=== PATIENT | female | born 1955 ===

== ENCOUNTER 2022-02-10 16:57 | Inpatient (IN) ==
[2022-02-10] MEDS ORDERED: Ipratropium/Albuterol Neb 3 ML IH ONE (18:45)
[2022-02-10 18:54] LABS: Basophils % 0.2 %; Hematocrit 24.3 % (35.3-44.9); Hemoglobin 8.1 g/dL (11.5-15.4); Immature Granulocytes % 1.2 % (0-4); Lymphocytes % 15.7 %; Mean Corpuscular HGB Conc 33.3 g/dL (31.6-35.5); Mean Corpuscular Hemoglobin 27.7 pg (28.0-33.3); Mean Corpuscular Volume 83.2 fL (83.0-100.0); Mean Platelet Volume 9.9 fL (9.4-12.4); Monocytes # 1.2 K/mcL (0.0-1.3); Monocytes % 17.7 %; Neutrophils # 4.2 K/mcL (1.6-8.9); Platelet Count 209 K/mcL (140-400); Red Blood Count 2.92 M/mcL (3.82-4.97); Red Cell Distribution Width 15.2 % (11.5-14.5); Segmented Neutrophils % 65.2 %; White Blood Count 6.5 K/mcL (4.3-11.1)
[2022-02-10 19:15] LABS: Alanine Aminotransferase 18 Units/L (7-52); Albumin 2.7 g/dL (3.5-5.7); Albumin/Globulin Ratio 0.7 (1.1-2.2); Alkaline Phosphatase 106 Units/L (34-104); Aspartate Amino Transferase 19 Units/L (13-39); BUN/Creatinine Ratio 20 (6-26); Bilirubin,Direct 0.3 mg/dL (0.0-0.2); Bilirubin,Indirect 0.5 mg/dL (0.0-1.0); Bilirubin,Total 0.8 mg/dL (0.3-1.0); Blood Urea Nitrogen 39 mg/dL (8-23); Calcium 8.4 mg/dL (8.6-10.3); Carbon Dioxide 21 mEq/L (23-29); Chloride 94 mEq/L (98-107); Globulin 3.9 g/dL (2.4-3.5); Glucose 291 mg/dL (70-105); Osmolality,Calculated 276 (280-300); Potassium 4.9 mEq/L (3.5-5.1); Sodium 123 mEq/L (136-145); Total Protein 6.6 g/dL (6.4-8.9); Troponin I < 0.03 ng/mL (< 0.04); eGFR For African Americans 31 (> 60); eGFR For Non-African Americans 25 (> 60)
[2022-02-10 19:28] LABS: VBG HCO3 19 mEq/L (21-27); VBG PCO2 34 mmHg (41-51); VBG PH 7.36 pH Units (7.32-7.42); VBG PO2 71 mmHg (25-50)
[2022-02-10] MEDS ORDERED: Furosemide 20 MG/2 ML VIAL IVP ONE (20:45)
[2022-02-10] MEDS ORDERED: *HR* Dextrose 50 % in Water (Syg) 50 ML SYRINGE IVP PRN (21:17)
[2022-02-10] MEDS ORDERED: D5% in Water 1,000 ML IVC PRN (21:17)
[2022-02-10] MEDS ORDERED: Dextrose Gel 15 GM/37.5 ML TUBE PO PRN ×2 (21:17)
[2022-02-10] MEDS ORDERED: Naloxone 0.4 MG/ML INJ IVP PRN (22:30)
[2022-02-10] MEDS ORDERED: Acetaminophen 325 MG TABLET PO PRN (22:30)
[2022-02-10] MEDS ORDERED: Ondansetron 4 MG/2 ML VIAL IVP PRN (22:30)
[2022-02-10 23:18] LABS: Bilirubin,Urine Negative (Negative); Blood,Urine Moderate (Negative); Clarity,Urine Ex.Turbid (Clear); Color,Urine Yellow (Yellow); Glucose,Urine (UA) 70 mg/dL (Normal); Ketones,Urine Trace mg/dL (Negative); Leukocyte Esterase,Urine Large (Negative); Nitrite,Urine Negative (Negative); Protein,Urine >=300 mg/dL (Neg-Trace); Specific Gravity,Urine 1.015 (1.010-1.025); Urobilinogen,Urine Normal (Normal)
[2022-02-10 23:29] LABS: Bacteria,Urine Present per hpf (None-Few); WBC,Urine Present per hpf (0-3)
[2022-02-11] MEDS ORDERED: Perflutren Lipid Microsphere 1.3 ML in 0.9 % Sodium Chloride 8.7 ML IVP PRN (00:17)
[2022-02-11] MEDS: Insulin LISPRO 300 UNITS/3 ML VIAL SUBQ SCH ×4 (00:34→17:12)
[2022-02-11] MEDS: Azithromycin 500 MG in 0.9 % Sodium Chloride 250 ML IVPB SCH ×2 (00:34→23:58)
[2022-02-11] MEDS: cefTRIAXone 1,000 MG in 0.9 % Sodium Chloride 10 ML IVP SCH ×2 (00:34→23:57)
[2022-02-11 01:28] LABS: Hematocrit 21.5 % (35.3-44.9); Mean Corpuscular HGB Conc 32.6 g/dL (31.6-35.5); Mean Corpuscular Hemoglobin 27.5 pg (28.0-33.3); Mean Corpuscular Volume 84.3 fL (83.0-100.0); Mean Platelet Volume 9.4 fL (9.4-12.4); Platelet Count 197 K/mcL (140-400); Red Blood Count 2.55 M/mcL (3.82-4.97); Red Cell Distribution Width 15.2 % (11.5-14.5); White Blood Count 6.3 K/mcL (4.3-11.1)
[2022-02-11 01:42] LABS: Calcium 8.4 mg/dL (8.6-10.3); Potassium 4.7 mEq/L (3.5-5.1)
[2022-02-11 01:44] LABS: Calcium 8.2 mg/dL (8.6-10.3); Potassium 4.7 mEq/L (3.5-5.1)
[2022-02-11 01:57] LABS: Thyroid Stimulating Hormone 1.689 mcIU/mL (0.340-5.600)
[2022-02-11 03:25] LABS: Adenovirus Not Detected (Not Detect); Bordetella Pertussis Not Detected (Not Detect); Chlamydophila pneumoniae Not Detected (Not Detect); Coronavirus 229E Not Detected (Not Detect); Coronavirus HKU1 Not Detected (Not Detect); Coronavirus NL63 Not Detected (Not Detect); Coronavirus OC43 Not Detected (Not Detect); Human Metapneumovirus Not Detected (Not Detect); Human Rhinovirus/Enterovirus Not Detected (Not Detect); Influenza A Subtype 2009 H1 Not Detected (Not Detect); Influenza B Not Detected (Not Detect); Mycoplasma pneumoniae Not Detected (Not Detect); Parainfluenza Virus 1 Not Detected (Not Detect); Parainfluenza Virus 2 Not Detected (Not Detect); Parainfluenza Virus 3 Not Detected (Not Detect); Parainfluenza Virus 4 Not Detected (Not Detect); Respiratory Syncytial Virus Not Detected (Not Detect); SARS-CoV-2 Not Detected (Not Detect)
[2022-02-11] MEDS: Cyanocobalamin (B-12) 1,000 MCG TABLET PO SCH (09:36)
[2022-02-11] MEDS: Furosemide 20 MG/2 ML VIAL IVP SCH ×2 (09:36→20:53)
[2022-02-11] MEDS: Cholecalciferol (D-3) 1,000 UNIT (25MCG) TABLET PO SCH (09:36)
[2022-02-11] MEDS: Insulin DETEMIR 100 UNIT/ML X5UNITS SUBQ SCH ×2 (09:37→20:53)
[2022-02-11] MEDS: Dorzolamide OPTH 10 ML BOTTLE BOTH EYES SCH ×2 (09:37→20:53)
[2022-02-11 10:25] LABS: Creatinine,Urine 106 mg/dL
[2022-02-11 10:40] LABS: Protein/Creatinine Ratio,Urine 2.68 mg/mg (0.00-0.20); Sodium, Urine 48.7 mEq/L
[2022-02-11 10:57] LABS: Folate 19.9 ng/mL (3.0-16.0)
[2022-02-11 11:04] LABS: Vitamin B12 > 1500 pg/mL (250-1100)
[2022-02-11] MEDS: Albumin 25% 25gram/100mL 25 GM/100 ML IV.SOLN IVPB SCH (15:52)
[2022-02-12] MEDS: Albumin 25% 25gram/100mL 25 GM/100 ML IV.SOLN IVPB SCH ×4 (01:08→16:51)
[2022-02-12 03:13] LABS: Red Cell Distribution Width 15.5 % (11.5-14.5)
[2022-02-12 03:15] LABS: Mean Corpuscular HGB Conc 32.2 g/dL (31.6-35.5); Mean Corpuscular Volume 83.7 fL (83.0-100.0); Mean Platelet Volume 9.7 fL (9.4-12.4); Platelet Count 209 K/mcL (140-400); Red Blood Count 2.15 M/mcL (3.82-4.97); White Blood Count 5.9 K/mcL (4.3-11.1)
[2022-02-12 03:36] LABS: Calcium 8.7 mg/dL (8.6-10.3); Hemoglobin 5.8 g/dL (11.5-15.4); Magnesium 1.6 mg/dL (1.6-2.6); Phosphorous 3.2 mg/dL (2.7-4.5); Potassium 4.2 mEq/L (3.5-5.1); Uric Acid 8.5 mg/dL (2.3-7.6)
[2022-02-12 05:18] LABS: Hypochromasia Present (Not Present); Lymphocytes # 2.2 K/mcL (0.6-4.6); Monocytes # 0.7 K/mcL (0.0-1.3)
[2022-02-12 05:20] LABS: Anisocytosis 1+ (Not Present); Platelet Estimate Normal (Normal)
[2022-02-12] MEDS: FLUoxetine 20 MG CAPSULE PO SCH (08:09)
[2022-02-12] MEDS: Cyanocobalamin (B-12) 1,000 MCG TABLET PO SCH (08:09)
[2022-02-12] MEDS: Cholecalciferol (D-3) 1,000 UNIT (25MCG) TABLET PO SCH (08:09)
[2022-02-12] MEDS: Furosemide 20 MG/2 ML VIAL IVP SCH ×2 (08:09→21:18)
[2022-02-12] MEDS: Insulin DETEMIR 100 UNIT/ML X5UNITS SUBQ SCH ×2 (08:14→21:18)
[2022-02-12] MEDS: Insulin LISPRO 300 UNITS/3 ML VIAL SUBQ SCH ×3 (08:15→16:52)
[2022-02-12] MEDS: Dorzolamide OPTH 10 ML BOTTLE BOTH EYES SCH ×2 (08:17→21:17)
[2022-02-12 16:57] LABS: Albumin 3.1 g/dL (3.5-5.7); Albumin/Globulin Ratio 0.9 (1.1-2.2); Bilirubin,Direct 0.3 mg/dL (0.0-0.2); Bilirubin,Indirect 0.6 mg/dL (0.0-1.0); Bilirubin,Total 0.9 mg/dL (0.3-1.0); Globulin 3.5 g/dL (2.4-3.5); Rheumatoid Factor 67 IU/mL (Less than 14); Total Protein 6.6 g/dL (6.4-8.9)
[2022-02-12 16:58] LABS: Complement C3 121 mg/dL (87-200)
[2022-02-12 17:41] LABS: Hepatitis B Surface Antigen Nonreactive (Nonreactive)
[2022-02-12 18:09] LABS: Hepatitis B Core IgM Nonreactive (Nonreactive)
[2022-02-12 18:10] LABS: Hepatitis C Virus Antibody Nonreactive (Nonreactive)
[2022-02-12 18:11] LABS: Hepatitis A Antibody IgM Nonreactive (Nonreactive)
[2022-02-12] MEDS: cefTRIAXone 1,000 MG in 0.9 % Sodium Chloride 10 ML IVP SCH (23:40)
[2022-02-12] MEDS: Azithromycin 500 MG in 0.9 % Sodium Chloride 250 ML IVPB SCH (23:43)
[2022-02-13] MEDS: Albumin 25% 25gram/100mL 25 GM/100 ML IV.SOLN IVPB SCH ×4 (02:03→23:01)
[2022-02-13 03:23] LABS: Basophils % 0.2 %; Eosinophils % 0.2 %; Hematocrit 26.4 % (35.3-44.9); Immature Granulocytes % 1.2 % (0-4); Mean Corpuscular Hemoglobin 27.9 pg (28.0-33.3); Mean Corpuscular Volume 84.6 fL (83.0-100.0); Mean Platelet Volume 9.5 fL (9.4-12.4); Monocytes # 0.9 K/mcL (0.0-1.3); Monocytes % 14.9 %; Neutrophils # 3.3 K/mcL (1.6-8.9); Platelet Count 222 K/mcL (140-400); Red Blood Count 3.12 M/mcL (3.82-4.97); Red Cell Distribution Width 14.6 % (11.5-14.5); Segmented Neutrophils % 54.5 %
[2022-02-13 03:43] LABS: Hemoglobin 8.7 g/dL (11.5-15.4); Lymphocytes # 1.7 K/mcL (0.6-4.6)
[2022-02-13 03:48] LABS: Potassium 4.2 mEq/L (3.5-5.1)
[2022-02-13] MEDS: Insulin LISPRO 300 UNITS/3 ML VIAL SUBQ SCH ×3 (08:21→17:17)
[2022-02-13] MEDS: Insulin DETEMIR 100 UNIT/ML X5UNITS SUBQ SCH ×2 (08:59→20:55)
[2022-02-13] MEDS: Dorzolamide OPTH 10 ML BOTTLE BOTH EYES SCH ×2 (09:00→20:54)
[2022-02-13] MEDS: FLUoxetine 20 MG CAPSULE PO SCH (09:22)
[2022-02-13] MEDS: Cyanocobalamin (B-12) 1,000 MCG TABLET PO SCH (09:22)
[2022-02-13] MEDS: Cholecalciferol (D-3) 1,000 UNIT (25MCG) TABLET PO SCH (09:22)
[2022-02-13] MEDS: Furosemide 20 MG/2 ML VIAL IVP SCH ×2 (09:54→20:54)
[2022-02-13 16:25] LABS: INR 1.1; Prothrombin Time 12.7 Seconds (9.4-12.1)
[2022-02-13 17:43] LABS: ABG Base Excess -3 mEq/L (-2 to 3); ABG HCO3 21 mEq/L (21-27); ABG Oxygen Saturation 84 % (95-98); ABG PCO2 34 mmHg (35-45); ABG PO2 48 mmHg (85-104); ABG TCO2 22 mEq/L (20-26)
[2022-02-13] MEDS ORDERED: Furosemide 40 MG/4 ML VIAL IVP ONE (18:30)
[2022-02-13] MEDS: Cefepime HCl 2,000 MG in 0.9 % Sodium Chloride 10 ML IVPB SCH (20:53)
[2022-02-13] MEDS ORDERED: Vancomycin 1,500 MG/265 ML IV.SOLN IVPB ONE (21:00)
[2022-02-14] MEDS: Insulin LISPRO 300 UNITS/3 ML VIAL SUBQ SCH ×3 (09:48→18:42)
[2022-02-14] MEDS: Cholecalciferol (D-3) 1,000 UNIT (25MCG) TABLET PO SCH (09:57)
[2022-02-14] MEDS: Cyanocobalamin (B-12) 1,000 MCG TABLET PO SCH (09:57)
[2022-02-14] MEDS: Furosemide 20 MG/2 ML VIAL IVP SCH ×2 (09:58→20:50)
[2022-02-14] MEDS: FLUoxetine 20 MG CAPSULE PO SCH (09:58)
[2022-02-14] MEDS: Albumin 25% 25gram/100mL 25 GM/100 ML IV.SOLN IVPB SCH ×2 (09:58→18:42)
[2022-02-14] MEDS: Cefepime HCl 2,000 MG in 0.9 % Sodium Chloride 10 ML IVPB SCH (09:59)
[2022-02-14] MEDS: Dorzolamide OPTH 10 ML BOTTLE BOTH EYES SCH ×2 (10:00→20:51)
[2022-02-14 10:31] LABS: Basophils % 0.1 %; Hematocrit 25.4 % (35.3-44.9); Hemoglobin 8.5 g/dL (11.5-15.4); Immature Granulocytes % 0.9 % (0-4); Lymphocytes # 1.5 K/mcL (0.6-4.6); Lymphocytes % 20.8 %; Mean Corpuscular HGB Conc 33.5 g/dL (31.6-35.5); Mean Corpuscular Hemoglobin 28.7 pg (28.0-33.3); Mean Corpuscular Volume 85.8 fL (83.0-100.0); Mean Platelet Volume 9.3 fL (9.4-12.4); Monocytes # 0.7 K/mcL (0.0-1.3); Monocytes % 9.3 %; Neutrophils # 4.8 K/mcL (1.6-8.9); Platelet Count 209 K/mcL (140-400); Red Blood Count 2.96 M/mcL (3.82-4.97); Segmented Neutrophils % 68.9 %
[2022-02-14 10:52] LABS: Calcium 9.5 mg/dL (8.6-10.3); Potassium 4.1 mEq/L (3.5-5.1)
[2022-02-14] MEDS: Insulin DETEMIR 100 UNIT/ML X5UNITS SUBQ SCH ×2 (12:20→20:50)
[2022-02-14 20:52] LABS: Calcium 9.5 mg/dL (8.6-10.3); Potassium 4.2 mEq/L (3.5-5.1)
[2022-02-14] MEDS ORDERED: Vancomycin 1,250 MG/262.5 ML IV.SOLN IVPB ONE (22:00)
[2022-02-15 04:04] LABS: Basophils % 0.1 %; Eosinophils % 0.3 %; Hematocrit 23.2 % (35.3-44.9); Hemoglobin 7.6 g/dL (11.5-15.4); Lymphocytes # 1.6 K/mcL (0.6-4.6); Lymphocytes % 21.4 %; Mean Corpuscular HGB Conc 32.8 g/dL (31.6-35.5); Mean Corpuscular Hemoglobin 28.6 pg (28.0-33.3); Mean Corpuscular Volume 87.2 fL (83.0-100.0); Monocytes # 0.8 K/mcL (0.0-1.3); Monocytes % 11.4 %; Neutrophils # 4.8 K/mcL (1.6-8.9); Platelet Count 208 K/mcL (140-400); Red Blood Count 2.66 M/mcL (3.82-4.97); Red Cell Distribution Width 15.3 % (11.5-14.5); Segmented Neutrophils % 65.8 %; White Blood Count 7.4 K/mcL (4.3-11.1)
[2022-02-15 04:20] LABS: Calcium 9.4 mg/dL (8.6-10.3); Magnesium 1.6 mg/dL (1.6-2.6); Potassium 4.3 mEq/L (3.5-5.1)
[2022-02-15] MEDS: Insulin LISPRO 300 UNITS/3 ML VIAL SUBQ SCH ×3 (09:12→17:24)
[2022-02-15] MEDS: Furosemide 20 MG/2 ML VIAL IVP SCH ×2 (09:14→20:28)
[2022-02-15] MEDS: Insulin DETEMIR 100 UNIT/ML X5UNITS SUBQ SCH ×2 (09:15→20:32)
[2022-02-15] MEDS: FLUoxetine 20 MG CAPSULE PO SCH (09:16)
[2022-02-15] MEDS: Dorzolamide OPTH 10 ML BOTTLE BOTH EYES SCH (09:16)
[2022-02-15] MEDS: Cefepime HCl 2,000 MG in 0.9 % Sodium Chloride 10 ML IVPB SCH (09:17)
[2022-02-15] MEDS: Cholecalciferol (D-3) 1,000 UNIT (25MCG) TABLET PO SCH (09:18)
[2022-02-15] MEDS: Cyanocobalamin (B-12) 1,000 MCG TABLET PO SCH (09:18)
[2022-02-15] MEDS ORDERED: Furosemide 40 MG/4 ML VIAL IVP ONE (10:01)
[2022-02-15 10:19] LABS: ANA IgG by ELISA NONE DETECTED (None Detected)
[2022-02-15 10:27] LABS: Kappa Qnt Free Light Chains 128.59 mg/L (3.30-19.40); Lambda Qnt Free Light Chains 137.75 mg/L (5.71-26.30)
[2022-02-15] MEDS: Ipratropium/Albuterol Neb 3 ML IH PRN (10:31)
[2022-02-15] MEDS ORDERED: *HR* LORazepam 2 MG/ML VIAL IVP ONE (12:10)
[2022-02-15] MEDS ORDERED: *HR* LORazepam 2 MG/ML VIAL ONE (12:13)
[2022-02-15] MEDS ORDERED: Artificial Tears SOLN 15 ML BOTTLE BOTH EYES PRN (13:27)
[2022-02-15] MEDS: FentaNYL (PF) 1,000 MCG/100 ML IV.SOLN IVC SCH (13:45)
[2022-02-15] MEDS ORDERED: 0.9 % Sodium Chloride 500 ML ONE (13:57)
[2022-02-15] MEDS: Norepinephrine 4 MG/254 ML IV.SOLN IVC SCH (14:50)
[2022-02-15] MEDS: *HR* Heparin 5,000 UNIT/ML VIAL SQ SCH ×2 (15:46→20:28)
[2022-02-15] MEDS: Artificial Tears SOLN 15 ML BOTTLE BOTH EYES SCH ×3 (15:47→23:16)
[2022-02-15 16:04] LABS: ABG Base Excess -3 mEq/L (-2 to 3); ABG HCO3 23 mEq/L (21-27); ABG Oxygen Saturation 100 % (95-98); ABG PCO2 39 mmHg (35-45); ABG PH 7.37 pH Units (7.32-7.45); ABG PO2 241 mmHg (85-104); ABG TCO2 24 mEq/L (20-26); Blood Gas Modality ASSIST CONTROL; Blood Gas VT 400 cc
[2022-02-15] MEDS: Pantoprazole 40 MG VIAL IVP SCH (16:59)
[2022-02-15] MEDS: Albumin 25% 25gram/100mL 25 GM/100 ML IV.SOLN IVPB SCH ×2 (17:02→23:16)
[2022-02-15] MEDS: MetroNIDAZOLE 500 MG/100 ML 500 MG/100 ML BAG IVPB SCH ×2 (17:02→23:16)
[2022-02-15] MEDS ORDERED: Lidocaine -MPF 2% 5 ML VIAL SQ ONE (17:38)
[2022-02-15] MEDS ORDERED: *HR* Midazolam HCl 5 MG/5 ML VIAL IVP ONE (17:38)
[2022-02-15] MEDS ORDERED: *HR* Propofol 200 MG/20 ML VIAL IVP ONE (17:38)
[2022-02-15 18:55] LABS: Appearance of Body Fluid Clear (Clear); Volume of Body Fluid 23 mL
[2022-02-15] MEDS: Chlorhexidine Rinse 15 ML MOUTHWASH MM SCH (20:28)
[2022-02-15] MEDS: Budesonide/Formoterol 160/4.5 1 PUFF INH IH SCH (22:38)
[2022-02-16] MEDS: Dorzolamide OPTH 10 ML BOTTLE BOTH EYES SCH ×3 (00:10→20:21)
[2022-02-16 02:26] LABS: VBG Ionized Calcium 1.29 mmol/L (1.15-1.35)
[2022-02-16 02:29] LABS: Eosinophils % 0.5 %; Hematocrit 19.2 % (35.3-44.9); Hemoglobin 6.3 g/dL (11.5-15.4); Lymphocytes # 1.3 K/mcL (0.6-4.6); Lymphocytes % 31.6 %; Mean Corpuscular HGB Conc 32.8 g/dL (31.6-35.5); Mean Corpuscular Hemoglobin 28.5 pg (28.0-33.3); Mean Corpuscular Volume 86.9 fL (83.0-100.0); Mean Platelet Volume 9.1 fL (9.4-12.4); Monocytes # 0.6 K/mcL (0.0-1.3); Monocytes % 13.6 %; Neutrophils # 2.2 K/mcL (1.6-8.9); Platelet Count 151 K/mcL (140-400); Red Blood Count 2.21 M/mcL (3.82-4.97); Red Cell Distribution Width 15.6 % (11.5-14.5); Segmented Neutrophils % 53.3 %; White Blood Count 4.1 K/mcL (4.3-11.1)
[2022-02-16 02:38] LABS: Albumin 3.5 g/dL (3.5-5.7); Albumin/Globulin Ratio 1.2 (1.1-2.2); Bilirubin,Direct 0.5 mg/dL (0.0-0.2); Bilirubin,Indirect 0.4 mg/dL (0.0-1.0); Bilirubin,Total 0.9 mg/dL (0.3-1.0); Calcium 9.6 mg/dL (8.6-10.3); Globulin 2.9 g/dL (2.4-3.5); Magnesium 1.6 mg/dL (1.6-2.6); Phosphorous 2.7 mg/dL (2.7-4.5); Potassium 3.5 mEq/L (3.5-5.1); Total Protein 6.4 g/dL (6.4-8.9)
[2022-02-16] MEDS: FentaNYL (PF) 1,000 MCG/100 ML IV.SOLN IVC SCH ×3 (03:00→23:39)
[2022-02-16 03:49] LABS: ABG Base Excess -4 mEq/L (-2 to 3); ABG HCO3 21 mEq/L (21-27); ABG Oxygen Saturation 95 % (95-98); ABG PCO2 32 mmHg (35-45); ABG PH 7.41 pH Units (7.32-7.45); ABG PO2 72 mmHg (85-104); ABG TCO2 22 mEq/L (20-26); Blood Gas Modality AF; Blood Gas VT 400 cc
[2022-02-16] MEDS: Artificial Tears SOLN 15 ML BOTTLE BOTH EYES SCH ×6 (04:14→23:55)
[2022-02-16] MEDS: Norepinephrine 4 MG/254 ML IV.SOLN IVC SCH ×2 (04:17→15:24)
[2022-02-16] MEDS ORDERED: 0.9 % Sodium Chloride 250 ML IVC SCH (04:45)
[2022-02-16] MEDS: *HR* Heparin 5,000 UNIT/ML VIAL SQ SCH (05:23)
[2022-02-16] MEDS: Albumin 25% 25gram/100mL 25 GM/100 ML IV.SOLN IVPB SCH ×3 (07:50→23:54)
[2022-02-16] MEDS: Cyanocobalamin (B-12) 1,000 MCG TABLET PO SCH (07:51)
[2022-02-16] MEDS: Furosemide 20 MG/2 ML VIAL IVP SCH (07:51)
[2022-02-16] MEDS: Chlorhexidine Rinse 15 ML MOUTHWASH MM SCH ×2 (07:51→20:21)
[2022-02-16] MEDS: Pantoprazole 40 MG VIAL IVP SCH (07:51)
[2022-02-16] MEDS: Cholecalciferol (D-3) 1,000 UNIT (25MCG) TABLET PO SCH (07:51)
[2022-02-16] MEDS: MetroNIDAZOLE 500 MG/100 ML 500 MG/100 ML BAG IVPB SCH ×3 (07:51→23:54)
[2022-02-16] MEDS: FLUoxetine 20 MG CAPSULE PO SCH (07:51)
[2022-02-16] MEDS: Budesonide/Formoterol 160/4.5 1 PUFF INH IH SCH ×2 (07:56→19:45)
[2022-02-16] MEDS: Insulin LISPRO 300 UNITS/3 ML VIAL SUBQ SCH ×5 (08:17→23:56)
[2022-02-16] MEDS: Insulin DETEMIR 100 UNIT/ML X5UNITS SUBQ SCH ×2 (09:02→20:31)
[2022-02-16] MEDS: Cefepime HCl 2,000 MG in 0.9 % Sodium Chloride 10 ML IVPB SCH (10:13)
[2022-02-16] MEDS: methylPREDNISolone 250 MG in 0.9 % Sodium Chloride 50 ML IVPB SCH ×3 (11:11→23:53)
[2022-02-16 15:22] LABS: Immunoglobulin A 392 mg/dL (68-408); Immunoglobulin G 1190 mg/dL (768-1632); Immunoglobulin M 319 mg/dL (35-263)
[2022-02-16 15:51] LABS: Hematocrit 24.7 % (35.3-44.9); Hemoglobin 8.3 g/dL (11.5-15.4)
[2022-02-16 16:10] LABS: Magnesium 2.1 mg/dL (1.6-2.6)
[2022-02-16 17:18] LABS: Alpha 2 Globulin (PEP) 0.96 g/dL (0.48-1.05)
[2022-02-17 03:49] LABS: Hematocrit 24.5 % (35.3-44.9); Immature Granulocytes % 1.3 % (0-4); Lymphocytes # 0.3 K/mcL (0.6-4.6); Lymphocytes % 14.7 %; Mean Corpuscular HGB Conc 32.7 g/dL (31.6-35.5); Mean Corpuscular Hemoglobin 28.6 pg (28.0-33.3); Mean Corpuscular Volume 87.5 fL (83.0-100.0); Mean Platelet Volume 9.9 fL (9.4-12.4); Monocytes # 0.1 K/mcL (0.0-1.3); Monocytes % 3.6 %; Neutrophils # 1.8 K/mcL (1.6-8.9); Platelet Count 202 K/mcL (140-400); Red Cell Distribution Width 15.6 % (11.5-14.5); Segmented Neutrophils % 80.4 %; White Blood Count 2.2 K/mcL (4.3-11.1)
[2022-02-17 04:15] LABS: Albumin/Globulin Ratio 1.3 (1.1-2.2); Bilirubin,Direct 1.1 mg/dL (0.0-0.2); Bilirubin,Indirect 0.4 mg/dL (0.0-1.0); Bilirubin,Total 1.5 mg/dL (0.3-1.0); Calcium 9.6 mg/dL (8.6-10.3); Magnesium 2.1 mg/dL (1.6-2.6); Phosphorous 5.1 mg/dL (2.7-4.5); Potassium 4.4 mEq/L (3.5-5.1)
[2022-02-17 04:22] LABS: ABG Base Excess -9 mEq/L (-2 to 3); ABG HCO3 17 mEq/L (21-27); ABG Oxygen Saturation 94 % (95-98); ABG PCO2 35 mmHg (35-45); ABG PH 7.28 pH Units (7.32-7.45); ABG PO2 79 mmHg (85-104); ABG TCO2 18 mEq/L (20-26); Blood Gas Modality AF; Blood Gas VT 400 cc
[2022-02-17 04:57] LABS: IFE Reflexed IFE Done
[2022-02-17] MEDS: Insulin LISPRO 300 UNITS/3 ML VIAL SUBQ SCH ×5 (05:56→20:03)
[2022-02-17] MEDS: Artificial Tears SOLN 15 ML BOTTLE BOTH EYES SCH ×5 (05:56→19:47)
[2022-02-17] MEDS: methylPREDNISolone 250 MG in 0.9 % Sodium Chloride 50 ML IVPB SCH ×3 (05:58→17:29)
[2022-02-17] MEDS: MetroNIDAZOLE 500 MG/100 ML 500 MG/100 ML BAG IVPB SCH ×2 (06:59→16:00)
[2022-02-17] MEDS: Albumin 25% 25gram/100mL 25 GM/100 ML IV.SOLN IVPB SCH ×2 (07:00→16:00)
[2022-02-17] MEDS: Insulin DETEMIR 100 UNIT/ML X5UNITS SUBQ SCH ×2 (07:12→20:04)
[2022-02-17] MEDS: Cholecalciferol (D-3) 1,000 UNIT (25MCG) TABLET PO SCH (07:13)
[2022-02-17] MEDS: Dorzolamide OPTH 10 ML BOTTLE BOTH EYES SCH ×2 (07:13→19:47)
[2022-02-17] MEDS: Pantoprazole 40 MG VIAL IVP SCH (07:13)
[2022-02-17] MEDS: Chlorhexidine Rinse 15 ML MOUTHWASH MM SCH ×2 (07:13→19:50)
[2022-02-17] MEDS: Cyanocobalamin (B-12) 1,000 MCG TABLET PO SCH (07:13)
[2022-02-17] MEDS: FLUoxetine 20 MG CAPSULE PO SCH (07:13)
[2022-02-17] MEDS: Budesonide/Formoterol 160/4.5 1 PUFF INH IH SCH ×2 (07:27→21:23)
[2022-02-17] MEDS: FentaNYL (PF) 1,000 MCG/100 ML IV.SOLN IVC SCH ×2 (08:22→19:47)
[2022-02-17] MEDS ORDERED: Insulin DETEMIR 100 UNIT/ML X5UNITS SUBQ ONE (09:37)
[2022-02-17] MEDS ORDERED: Furosemide 20 MG/2 ML VIAL IVP ONE (09:38)
[2022-02-17] MEDS: Cefepime HCl 2,000 MG in 0.9 % Sodium Chloride 10 ML IVPB SCH (09:39)
[2022-02-17 09:47] LABS: ANCA IFA Titer <1:20 (<1:20)
[2022-02-17] MEDS: Norepinephrine 4 MG/254 ML IV.SOLN IVC SCH ×2 (11:24→19:49)
[2022-02-17 12:10] LABS: ANCA IFA Pattern NONE DETECTED (None Detected); Serine Protease-3 Antibody 23 AU/mL (0-19)
[2022-02-18] MEDS: MetroNIDAZOLE 500 MG/100 ML 500 MG/100 ML BAG IVPB SCH ×4 (01:08→23:11)
[2022-02-18] MEDS: Insulin LISPRO 300 UNITS/3 ML VIAL SUBQ SCH ×7 (01:09→23:39)
[2022-02-18] MEDS: Artificial Tears SOLN 15 ML BOTTLE BOTH EYES SCH ×7 (01:10→23:24)
[2022-02-18] MEDS: methylPREDNISolone 250 MG in 0.9 % Sodium Chloride 50 ML IVPB SCH ×2 (01:15→05:35)
[2022-02-18 05:42] LABS: ABG Base Excess -7 mEq/L (-2 to 3); ABG HCO3 18 mEq/L (21-27); ABG Oxygen Saturation 93 % (95-98); ABG PCO2 33 mmHg (35-45); ABG PH 7.34 pH Units (7.32-7.45); ABG PO2 71 mmHg (85-104); ABG TCO2 19 mEq/L (20-26); Blood Gas Modality ASSIST CONTROL; Blood Gas VT 400 cc
[2022-02-18 06:44] LABS: VBG Ionized Calcium 1.24 mmol/L (1.15-1.35)
[2022-02-18 06:46] LABS: Albumin 4.1 g/dL (3.5-5.7); Albumin/Globulin Ratio 1.6 (1.1-2.2); Bilirubin,Direct 0.3 mg/dL (0.0-0.2); Bilirubin,Indirect 0.4 mg/dL (0.0-1.0); Bilirubin,Total 0.7 mg/dL (0.3-1.0); Calcium 9.5 mg/dL (8.6-10.3); Globulin 2.6 g/dL (2.4-3.5); Magnesium 2.2 mg/dL (1.6-2.6); Phosphorous 4.8 mg/dL (2.7-4.5); Potassium 4.1 mEq/L (3.5-5.1); Total Protein 6.7 g/dL (6.4-8.9)
[2022-02-18 06:55] LABS: Hematocrit 26.3 % (35.3-44.9); Hemoglobin 8.6 g/dL (11.5-15.4); Immature Granulocytes % 1.8 % (0-4); Lymphocytes # 0.4 K/mcL (0.6-4.6); Lymphocytes % 7.9 %; Mean Corpuscular HGB Conc 32.7 g/dL (31.6-35.5); Mean Corpuscular Hemoglobin 28.7 pg (28.0-33.3); Mean Corpuscular Volume 87.7 fL (83.0-100.0); Mean Platelet Volume 9.8 fL (9.4-12.4); Monocytes # 0.4 K/mcL (0.0-1.3); Monocytes % 7.9 %; Neutrophils # 4.2 K/mcL (1.6-8.9); Platelet Count 310 K/mcL (140-400); Red Cell Distribution Width 16.1 % (11.5-14.5); Segmented Neutrophils % 82.4 %; White Blood Count 5.1 K/mcL (4.3-11.1)
[2022-02-18] MEDS: FentaNYL (PF) 1,000 MCG/100 ML IV.SOLN IVC SCH ×2 (07:08→23:25)
[2022-02-18] MEDS: Budesonide/Formoterol 160/4.5 1 PUFF INH IH SCH ×2 (07:22→20:19)
[2022-02-18] MEDS: Chlorhexidine Rinse 15 ML MOUTHWASH MM SCH ×2 (07:50→19:30)
[2022-02-18] MEDS: FLUoxetine 20 MG CAPSULE PO SCH (07:51)
[2022-02-18] MEDS: Cyanocobalamin (B-12) 1,000 MCG TABLET PO SCH (07:51)
[2022-02-18] MEDS: Cholecalciferol (D-3) 1,000 UNIT (25MCG) TABLET PO SCH (07:51)
[2022-02-18] MEDS: Insulin DETEMIR 100 UNIT/ML X5UNITS SUBQ SCH ×2 (07:51→23:12)
[2022-02-18] MEDS: Pantoprazole 40 MG VIAL IVP SCH ×2 (07:52→17:29)
[2022-02-18] MEDS ORDERED: methylPREDNISolone 125 MG/2 ML VIAL IVP SCH (08:00)
[2022-02-18] MEDS: Dorzolamide OPTH 10 ML BOTTLE BOTH EYES SCH ×2 (09:23→19:32)
[2022-02-18] MEDS: Cefepime HCl 2,000 MG in 0.9 % Sodium Chloride 10 ML IVPB SCH (09:36)
[2022-02-18] MEDS ORDERED: Insulin Human Regular 10 UNIT in 0.9 % Sodium Chloride 10 ML IV ONE (09:44)
[2022-02-18] MEDS ORDERED: Insulin LISPRO 300 UNITS/3 ML VIAL SUBQ ONE (09:52)
[2022-02-18 12:49] LABS: Bilirubin,Urine Negative (Negative); Blood,Urine Small (Negative); Clarity,Urine Ex.Turbid (Clear); Color,Urine Yellow (Yellow); Glucose,Urine (UA) 50 mg/dL (Normal); Ketones,Urine Negative (Negative); Leukocyte Esterase,Urine Large (Negative); Nitrite,Urine Negative (Negative); PH,Urine 6.5 pH Units (5.0-8.0); Protein,Urine >=600 mg/dL (Neg-Trace); Specific Gravity,Urine 1.022 (1.010-1.025); Urobilinogen,Urine Normal (Normal)
[2022-02-18 12:54] LABS: Budding Yeast,Urine Many per hpf (None Seen)
[2022-02-18 12:57] LABS: Squamous Epithelial Cell,Urine Few per hpf (None-Few)
[2022-02-18] MEDS ORDERED: Insulin DETEMIR 100 UNIT/ML X5UNITS SUBQ ONE (13:00)
[2022-02-18 13:15] LABS: Influenza A PCR Body Fluid NOT DETECTED; Influenza B PCR Body Fluid NOT DETECTED; RVP Body Fluid Source BAL
[2022-02-18 13:17] LABS: RSV PCR Body Fluid NOT DETECTED
[2022-02-18] MEDS: *HR* Heparin 5,000 UNIT/ML VIAL SQ SCH ×2 (13:18→19:30)
[2022-02-18] MEDS: Sucralfate 1 GM TABLET PO SCH (15:42)
[2022-02-19] MEDS: Artificial Tears SOLN 15 ML BOTTLE BOTH EYES SCH ×6 (03:26→23:10)
[2022-02-19] MEDS: Insulin LISPRO 300 UNITS/3 ML VIAL SUBQ SCH ×6 (03:27→23:12)
[2022-02-19 03:53] LABS: Basophils % 0.2 %; Hematocrit 27.1 % (35.3-44.9); Hemoglobin 8.8 g/dL (11.5-15.4); Immature Granulocytes % 1.1 % (0-4); Lymphocytes # 0.6 K/mcL (0.6-4.6); Lymphocytes % 9.1 %; Mean Corpuscular HGB Conc 32.5 g/dL (31.6-35.5); Mean Corpuscular Hemoglobin 28.5 pg (28.0-33.3); Mean Corpuscular Volume 87.7 fL (83.0-100.0); Mean Platelet Volume 9.9 fL (9.4-12.4); Monocytes # 0.8 K/mcL (0.0-1.3); Monocytes % 12.6 %; Neutrophils # 4.9 K/mcL (1.6-8.9); Platelet Count 336 K/mcL (140-400); Red Blood Count 3.09 M/mcL (3.82-4.97); Red Cell Distribution Width 16.1 % (11.5-14.5); White Blood Count 6.3 K/mcL (4.3-11.1)
[2022-02-19 03:56] LABS: VBG Ionized Calcium 1.25 mmol/L (1.15-1.35)
[2022-02-19 04:02] LABS: ABG Base Excess -7 mEq/L (-2 to 3); ABG HCO3 18 mEq/L (21-27); ABG Oxygen Saturation 94 % (95-98); ABG PCO2 36 mmHg (35-45); ABG PH 7.32 pH Units (7.32-7.45); ABG PO2 78 mmHg (85-104); ABG TCO2 19 mEq/L (20-26); Blood Gas VT 400 cc
[2022-02-19 05:06] LABS: Albumin 3.6 g/dL (3.5-5.7); Albumin/Globulin Ratio 1.2 (1.1-2.2); Bilirubin,Total 0.5 mg/dL (0.3-1.0); Calcium 9.2 mg/dL (8.6-10.3); Globulin 2.9 g/dL (2.4-3.5); Magnesium 2.1 mg/dL (1.6-2.6); Potassium 4.3 mEq/L (3.5-5.1); Total Protein 6.5 g/dL (6.4-8.9)
[2022-02-19] MEDS: Pantoprazole 40 MG VIAL IVP SCH ×2 (05:41→17:16)
[2022-02-19] MEDS: *HR* Heparin 5,000 UNIT/ML VIAL SQ SCH ×3 (05:41→23:10)
[2022-02-19] MEDS: FentaNYL (PF) 1,000 MCG/100 ML IV.SOLN IVC SCH (07:38)
[2022-02-19] MEDS: Chlorhexidine Rinse 15 ML MOUTHWASH MM SCH ×2 (07:42→19:33)
[2022-02-19] MEDS: Sucralfate 1 GM TABLET PO SCH ×2 (07:42→15:53)
[2022-02-19] MEDS: Cyanocobalamin (B-12) 1,000 MCG TABLET PO SCH (07:42)
[2022-02-19] MEDS: FLUoxetine 20 MG CAPSULE PO SCH (07:43)
[2022-02-19] MEDS: Cholecalciferol (D-3) 1,000 UNIT (25MCG) TABLET PO SCH (07:43)
[2022-02-19] MEDS: Dorzolamide OPTH 10 ML BOTTLE BOTH EYES SCH ×2 (07:43→19:32)
[2022-02-19] MEDS: MetroNIDAZOLE 500 MG/100 ML 500 MG/100 ML BAG IVPB SCH ×3 (07:44→23:10)
[2022-02-19] MEDS: Budesonide/Formoterol 160/4.5 1 PUFF INH IH SCH ×2 (07:46→20:01)
[2022-02-19] MEDS: Insulin DETEMIR 100 UNIT/ML X5UNITS SUBQ SCH ×2 (07:46→19:33)
[2022-02-19] MEDS: Dexmedetomidine HCl 400 MCG/100 ML MLS IVC SCH ×3 (08:28→22:41)
[2022-02-19] MEDS ORDERED: *HR* Metoprolol 5 MG/5 ML VIAL IVP ONE (09:26)
[2022-02-19] MEDS: Cefepime HCl 2,000 MG in 0.9 % Sodium Chloride 10 ML IVPB SCH (10:46)
[2022-02-20 03:45] LABS: Hematocrit 27.3 % (35.3-44.9); Lymphocytes # 0.8 K/mcL (0.6-4.6); Lymphocytes % 11.6 %; Mean Corpuscular Hemoglobin 28.6 pg (28.0-33.3); Mean Corpuscular Volume 86.7 fL (83.0-100.0); Mean Platelet Volume 9.6 fL (9.4-12.4); Monocytes # 1.1 K/mcL (0.0-1.3); Monocytes % 15.3 %; Neutrophils # 5.1 K/mcL (1.6-8.9); Platelet Count 287 K/mcL (140-400); Red Blood Count 3.15 M/mcL (3.82-4.97); Segmented Neutrophils % 72.1 %; White Blood Count 7.1 K/mcL (4.3-11.1)
[2022-02-20 03:46] LABS: VBG Ionized Calcium 1.21 mmol/L (1.15-1.35)
[2022-02-20] MEDS: Insulin LISPRO 300 UNITS/3 ML VIAL SUBQ SCH ×5 (03:54→19:58)
[2022-02-20] MEDS: Artificial Tears SOLN 15 ML BOTTLE BOTH EYES SCH ×5 (03:55→20:47)
[2022-02-20 04:19] LABS: Albumin 3.1 g/dL (3.5-5.7); Albumin/Globulin Ratio 1.1 (1.1-2.2); Bilirubin,Total 0.5 mg/dL (0.3-1.0); Calcium 8.5 mg/dL (8.6-10.3); Globulin 2.8 g/dL (2.4-3.5); Magnesium 1.9 mg/dL (1.6-2.6); Phosphorous 4.3 mg/dL (2.7-4.5); Potassium 3.9 mEq/L (3.5-5.1); Total Protein 5.9 g/dL (6.4-8.9)
[2022-02-20 05:01] LABS: ABG Base Excess -7 mEq/L (-2 to 3); ABG HCO3 18 mEq/L (21-27); ABG Oxygen Saturation 97 % (95-98); ABG PCO2 33 mmHg (35-45); ABG PH 7.35 pH Units (7.32-7.45); ABG PO2 95 mmHg (85-104); ABG TCO2 19 mEq/L (20-26); Blood Gas VT 400 cc
[2022-02-20] MEDS: Dexmedetomidine HCl 400 MCG/100 ML MLS IVC SCH (05:25)
[2022-02-20] MEDS: Pantoprazole 40 MG VIAL IVP SCH ×2 (06:05→17:21)
[2022-02-20] MEDS: *HR* Heparin 5,000 UNIT/ML VIAL SQ SCH ×3 (06:05→21:28)
[2022-02-20] MEDS: Budesonide/Formoterol 160/4.5 1 PUFF INH IH SCH ×2 (07:18→20:16)
[2022-02-20] MEDS ORDERED: Potassium Chloride Elixir 20 MEQ/15 ML UDC GTUBE ONE (07:28)
[2022-02-20] MEDS ORDERED: Magnesium Sulfate 1 GM/102 ML PIGGYBACK IVPB ONE (07:45)
[2022-02-20] MEDS: Cholecalciferol (D-3) 1,000 UNIT (25MCG) TABLET PO SCH (07:54)
[2022-02-20] MEDS: Cyanocobalamin (B-12) 1,000 MCG TABLET PO SCH (07:54)
[2022-02-20] MEDS: Insulin DETEMIR 100 UNIT/ML X5UNITS SUBQ SCH ×2 (07:54→21:23)
[2022-02-20] MEDS: Chlorhexidine Rinse 15 ML MOUTHWASH MM SCH ×2 (07:54→21:27)
[2022-02-20] MEDS: MetroNIDAZOLE 500 MG/100 ML 500 MG/100 ML BAG IVPB SCH ×2 (07:54→15:49)
[2022-02-20] MEDS: FLUoxetine 20 MG CAPSULE PO SCH (07:55)
[2022-02-20] MEDS: Sucralfate 1 GM TABLET PO SCH ×2 (07:55→15:28)
[2022-02-20] MEDS: Dorzolamide OPTH 10 ML BOTTLE BOTH EYES SCH ×2 (07:56→20:00)
[2022-02-20] MEDS: amLODIPine 5 MG TABLET GTUBE SCH (08:39)
[2022-02-20] MEDS ORDERED: 0.9 % Sodium Chloride 1,000 ML ONE (10:28)
[2022-02-20] MEDS: Cefepime HCl 2,000 MG in 0.9 % Sodium Chloride 10 ML IVPB SCH (10:30)
[2022-02-20 13:17] LABS: Ribonucleic Protein IgG-Sm/RNP 3 Units (0-19); SSA 52 (Anti-RO) Antibody 2 AU/mL (0-40); SSA 60 (Anti-RO) Antibody 1 AU/mL (0-40)
[2022-02-20] MEDS: niCARdipine 20 MG/200 ML MLS IVC SCH ×5 (19:40→23:55)
[2022-02-21] MEDS: MetroNIDAZOLE 500 MG/100 ML 500 MG/100 ML BAG IVPB SCH ×3 (00:01→16:05)
[2022-02-21] MEDS: Artificial Tears SOLN 15 ML BOTTLE BOTH EYES SCH ×6 (00:03→20:27)
[2022-02-21] MEDS: Insulin LISPRO 300 UNITS/3 ML VIAL SUBQ SCH ×6 (00:09→20:40)
[2022-02-21] MEDS: niCARdipine 20 MG/200 ML MLS IVC SCH ×6 (02:03→10:58)
[2022-02-21 04:41] LABS: VBG Ionized Calcium 1.24 mmol/L (1.15-1.35)
[2022-02-21 05:00] LABS: Basophils % 0.3 %; Eosinophils % 0.1 %; Hematocrit 30.5 % (35.3-44.9); Hemoglobin 9.9 g/dL (11.5-15.4); Immature Granulocytes % 1.3 % (0-4); Lymphocytes # 1.7 K/mcL (0.6-4.6); Lymphocytes % 15.3 %; Mean Corpuscular HGB Conc 32.5 g/dL (31.6-35.5); Mean Corpuscular Hemoglobin 28.4 pg (28.0-33.3); Mean Corpuscular Volume 87.4 fL (83.0-100.0); Mean Platelet Volume 10.2 fL (9.4-12.4); Monocytes # 1.4 K/mcL (0.0-1.3); Monocytes % 12.6 %; Platelet Count 374 K/mcL (140-400); Red Blood Count 3.49 M/mcL (3.82-4.97); Red Cell Distribution Width 16.2 % (11.5-14.5); Segmented Neutrophils % 70.4 %
[2022-02-21 05:01] LABS: White Blood Count 11.4 K/mcL (4.3-11.1)
[2022-02-21 05:05] LABS: Albumin 3.3 g/dL (3.5-5.7); Albumin/Globulin Ratio 1.1 (1.1-2.2); Bilirubin,Total 0.7 mg/dL (0.3-1.0); Calcium 9.1 mg/dL (8.6-10.3); Globulin 2.9 g/dL (2.4-3.5); Magnesium 2.2 mg/dL (1.6-2.6); Phosphorous 4.6 mg/dL (2.7-4.5); Potassium 4.2 mEq/L (3.5-5.1); Total Protein 6.2 g/dL (6.4-8.9)
[2022-02-21] MEDS: *HR* Heparin 5,000 UNIT/ML VIAL SQ SCH ×3 (06:00→20:41)
[2022-02-21] MEDS: Pantoprazole 40 MG VIAL IVP SCH ×2 (06:00→16:05)
[2022-02-21] MEDS: Budesonide/Formoterol 160/4.5 1 PUFF INH IH SCH ×2 (07:30→19:50)
[2022-02-21] MEDS: Chlorhexidine Rinse 15 ML MOUTHWASH MM SCH ×2 (07:36→20:27)
[2022-02-21] MEDS: Sucralfate 1 GM TABLET PO SCH ×2 (08:07→16:02)
[2022-02-21] MEDS: FLUoxetine 20 MG CAPSULE PO SCH (08:08)
[2022-02-21] MEDS: Cholecalciferol (D-3) 1,000 UNIT (25MCG) TABLET PO SCH (08:08)
[2022-02-21] MEDS: Insulin DETEMIR 100 UNIT/ML X5UNITS SUBQ SCH (08:08)
[2022-02-21] MEDS: Dorzolamide OPTH 10 ML BOTTLE BOTH EYES SCH ×2 (08:08→20:41)
[2022-02-21] MEDS: Cyanocobalamin (B-12) 1,000 MCG TABLET PO SCH (08:08)
[2022-02-21] MEDS ORDERED: Ringers Solution, Lactated 1,000 ML IVC SCH (08:45)
[2022-02-21] MEDS ORDERED: NICARDIPINE IVC SCH (10:45)
[2022-02-21] MEDS ORDERED: D5 IVC SCH (10:45)
[2022-02-21] MEDS ORDERED: WATER IVC SCH (10:45)
[2022-02-21] MEDS ORDERED: niCARdipine 20 MG/200 ML MLS IVC ONE (10:57)
[2022-02-21] MEDS: Cefepime HCl 2,000 MG in 0.9 % Sodium Chloride 10 ML IVPB SCH (11:38)
[2022-02-21] MEDS: D5 IVC SCH ×4 (12:44→23:11)
[2022-02-21] MEDS: NICARDIPINE IVC SCH ×4 (12:44→23:11)
[2022-02-21] MEDS: WATER IVC SCH ×4 (12:44→23:11)
[2022-02-21] MEDS: FentaNYL (PF) 1,000 MCG/100 ML IV.SOLN IVC SCH (20:08)
[2022-02-21] MEDS: Dexmedetomidine HCl 400 MCG/100 ML MLS IVC SCH (20:09)
[2022-02-22] MEDS: Artificial Tears SOLN 15 ML BOTTLE BOTH EYES SCH ×3 (02:17→07:23)
[2022-02-22] MEDS: MetroNIDAZOLE 500 MG/100 ML 500 MG/100 ML BAG IVPB SCH ×3 (02:22→15:59)
[2022-02-22] MEDS: Insulin LISPRO 300 UNITS/3 ML VIAL SUBQ SCH ×6 (02:22→21:07)
[2022-02-22] MEDS: D5 IVC SCH ×4 (02:57→14:42)
[2022-02-22] MEDS: WATER IVC SCH ×4 (02:57→14:42)
[2022-02-22] MEDS: NICARDIPINE IVC SCH ×4 (02:57→14:42)
[2022-02-22] MEDS: FentaNYL (PF) 1,000 MCG/100 ML IV.SOLN IVC SCH (04:02)
[2022-02-22 04:41] LABS: VBG Ionized Calcium 1.25 mmol/L (1.15-1.35)
[2022-02-22 04:47] LABS: Basophils % 0.1 %; Eosinophils % 0.1 %; Hemoglobin 9.3 g/dL (11.5-15.4); Immature Granulocytes % 1.1 % (0-4); Lymphocytes # 1.3 K/mcL (0.6-4.6); Lymphocytes % 12.7 %; Mean Corpuscular HGB Conc 32.1 g/dL (31.6-35.5); Mean Corpuscular Hemoglobin 29.2 pg (28.0-33.3); Mean Corpuscular Volume 91.2 fL (83.0-100.0); Mean Platelet Volume 9.9 fL (9.4-12.4); Monocytes # 1.1 K/mcL (0.0-1.3); Monocytes % 11.3 %; Neutrophils # 7.3 K/mcL (1.6-8.9); Platelet Count 312 K/mcL (140-400); Red Blood Count 3.18 M/mcL (3.82-4.97); Red Cell Distribution Width 17.2 % (11.5-14.5); Segmented Neutrophils % 74.7 %; White Blood Count 9.8 K/mcL (4.3-11.1)
[2022-02-22] MEDS: Sucralfate 1 GM TABLET PO SCH ×2 (05:06→16:32)
[2022-02-22 05:07] LABS: Albumin 3.1 g/dL (3.5-5.7); Albumin/Globulin Ratio 1.1 (1.1-2.2); Bilirubin,Total 0.6 mg/dL (0.3-1.0); Globulin 2.8 g/dL (2.4-3.5); Magnesium 2.2 mg/dL (1.6-2.6); Phosphorous 5.4 mg/dL (2.7-4.5); Potassium 4.4 mEq/L (3.5-5.1); Total Protein 5.9 g/dL (6.4-8.9)
[2022-02-22] MEDS: *HR* Heparin 5,000 UNIT/ML VIAL SQ SCH ×3 (05:08→21:18)
[2022-02-22] MEDS: Pantoprazole 40 MG VIAL IVP SCH (05:08)
[2022-02-22] MEDS: amLODIPine 5 MG TABLET GTUBE SCH (07:24)
[2022-02-22] MEDS: Cholecalciferol (D-3) 1,000 UNIT (25MCG) TABLET PO SCH (07:24)
[2022-02-22] MEDS: FLUoxetine 20 MG CAPSULE PO SCH (07:24)
[2022-02-22] MEDS: Chlorhexidine Rinse 15 ML MOUTHWASH MM SCH (07:24)
[2022-02-22] MEDS: Cyanocobalamin (B-12) 1,000 MCG TABLET PO SCH (07:24)
[2022-02-22] MEDS: Dorzolamide OPTH 10 ML BOTTLE BOTH EYES SCH ×2 (07:28→21:07)
[2022-02-22] MEDS: Budesonide/Formoterol 160/4.5 1 PUFF INH IH SCH ×2 (07:55→20:09)
[2022-02-22] MEDS ORDERED: 0.9 % Sodium Chloride 250 ML IVC PRN (09:17)
[2022-02-22] MEDS ORDERED: 0.9 % Sodium Chloride 2,000 ML PRIME SCH (09:30)
[2022-02-22] MEDS ORDERED: *HR* Heparin 10,000 UNIT/10 ML VIAL IV PRN (09:30)
[2022-02-22] MEDS: Cefepime HCl 2,000 MG in 0.9 % Sodium Chloride 10 ML IVPB SCH (10:50)
[2022-02-22] MEDS: Thiamine (B-1) 100 MG in 0.9 % Sodium Chloride 50 ML IVPB SCH ×3 (10:50→21:07)
[2022-02-22] MEDS ORDERED: Lidocaine Viscous Oral Soln 15 ML SOLUTION ONE (13:37)
[2022-02-22] MEDS ORDERED: *HR* Midazolam HCl 2 MG/2 ML VIAL IVP ONE (14:31)
[2022-02-22] MEDS ORDERED: *HR* FentaNYL (PF) 100 MCG/2 ML VIAL IVP ONE (14:32)
[2022-02-23] MEDS: Insulin LISPRO 300 UNITS/3 ML VIAL SUBQ SCH ×7 (00:14→23:50)
[2022-02-23 05:56] LABS: Hematocrit 28.4 % (35.3-44.9); Hemoglobin 9.3 g/dL (11.5-15.4); Mean Corpuscular HGB Conc 32.7 g/dL (31.6-35.5); Mean Corpuscular Hemoglobin 29.5 pg (28.0-33.3); Mean Corpuscular Volume 90.2 fL (83.0-100.0); Platelet Count 267 K/mcL (140-400); Red Blood Count 3.15 M/mcL (3.82-4.97); Red Cell Distribution Width 17.5 % (11.5-14.5)
[2022-02-23 06:12] LABS: White Blood Count 15.8 K/mcL (4.3-11.1)
[2022-02-23 06:14] LABS: Calcium 9.2 mg/dL (8.6-10.3); Magnesium 2.2 mg/dL (1.6-2.6); Potassium 4.4 mEq/L (3.5-5.1)
[2022-02-23] MEDS: *HR* Heparin 5,000 UNIT/ML VIAL SQ SCH ×3 (06:21→23:35)
[2022-02-23] MEDS: Budesonide/Formoterol 160/4.5 1 PUFF INH IH SCH ×2 (07:53→21:20)
[2022-02-23] MEDS: Sucralfate 1 GM TABLET PO SCH ×2 (08:15→14:54)
[2022-02-23] MEDS: FLUoxetine 20 MG CAPSULE PO SCH (08:16)
[2022-02-23] MEDS: Cyanocobalamin (B-12) 1,000 MCG TABLET PO SCH (08:16)
[2022-02-23] MEDS: Cholecalciferol (D-3) 1,000 UNIT (25MCG) TABLET PO SCH (08:16)
[2022-02-23] MEDS: amLODIPine 5 MG TABLET GTUBE SCH (08:16)
[2022-02-23 08:39] LABS: Phosphorous 5.4 mg/dL (2.7-4.5)
[2022-02-23] MEDS: Ampicillin/Sulbactam 3,000 MG in 0.9 % Sodium Chloride Mini Bag 100 ML IVPB SCH ×2 (08:47→23:47)
[2022-02-23] MEDS: Pantoprazole 40 MG VIAL IVP SCH (08:51)
[2022-02-23] MEDS: Dorzolamide OPTH 10 ML BOTTLE BOTH EYES SCH ×2 (08:55→19:40)
[2022-02-23] MEDS: Thiamine (B-1) 100 MG in 0.9 % Sodium Chloride 50 ML IVPB SCH ×3 (09:01→19:39)
[2022-02-23] MEDS ORDERED: 0.9 % Sodium Chloride 250 ML IVC PRN (14:32)
[2022-02-23] MEDS ORDERED: *HR* Heparin 10,000 UNIT/10 ML VIAL IV PRN (14:32)
[2022-02-23] MEDS ORDERED: D10% in Water 500 ML IVC PRN (15:45)
[2022-02-23] MEDS ORDERED: Clinimix 5%-20% SOLUTION 2,000 ML with MVI, adult with vitamin K 10 ML, Sodium Acetat... IVC SCH (17:00)
[2022-02-24 04:14] LABS: Hematocrit 28.9 % (35.3-44.9); Hemoglobin 9.2 g/dL (11.5-15.4); Mean Corpuscular HGB Conc 31.8 g/dL (31.6-35.5); Mean Corpuscular Hemoglobin 28.8 pg (28.0-33.3); Mean Corpuscular Volume 90.3 fL (83.0-100.0); Platelet Count 222 K/mcL (140-400); Red Cell Distribution Width 17.5 % (11.5-14.5); White Blood Count 9.5 K/mcL (4.3-11.1)
[2022-02-24 04:37] LABS: Albumin 3.1 g/dL (3.5-5.7); Bilirubin,Total 0.7 mg/dL (0.3-1.0); Calcium 9.2 mg/dL (8.6-10.3); Globulin 3.1 g/dL (2.4-3.5); Phosphorous 3.9 mg/dL (2.7-4.5); Potassium 3.7 mEq/L (3.5-5.1); Total Protein 6.2 g/dL (6.4-8.9)
[2022-02-24] MEDS: Insulin LISPRO 300 UNITS/3 ML VIAL SUBQ SCH ×5 (05:42→20:01)
[2022-02-24] MEDS: *HR* Heparin 5,000 UNIT/ML VIAL SQ SCH ×3 (06:23→22:48)
[2022-02-24] MEDS: Sucralfate 1 GM TABLET PO SCH ×2 (07:12→14:25)
[2022-02-24] MEDS: Cholecalciferol (D-3) 1,000 UNIT (25MCG) TABLET PO SCH (07:13)
[2022-02-24] MEDS: amLODIPine 5 MG TABLET GTUBE SCH (07:13)
[2022-02-24] MEDS: Cyanocobalamin (B-12) 1,000 MCG TABLET PO SCH (07:13)
[2022-02-24] MEDS: FLUoxetine 20 MG CAPSULE PO SCH (07:13)
[2022-02-24] MEDS: Pantoprazole 40 MG VIAL IVP SCH (07:17)
[2022-02-24] MEDS: Dorzolamide OPTH 10 ML BOTTLE BOTH EYES SCH ×2 (07:18→20:02)
[2022-02-24] MEDS: Thiamine (B-1) 100 MG in 0.9 % Sodium Chloride 50 ML IVPB SCH ×3 (07:18→20:04)
[2022-02-24] MEDS: Budesonide/Formoterol 160/4.5 1 PUFF INH IH SCH ×2 (07:50→20:18)
[2022-02-24] MEDS: Ampicillin/Sulbactam 3,000 MG in 0.9 % Sodium Chloride Mini Bag 100 ML IVPB SCH ×2 (09:11→22:48)
[2022-02-24] MEDS: Insulin DETEMIR 100 UNIT/ML X5UNITS SUBQ SCH ×2 (11:09→20:01)
[2022-02-24] MEDS ORDERED: Clinimix E 5%-20% SOLUTION 2,000 ML with MVI, adult with vitamin K 10 ML IVC SCH (17:00)
[2022-02-24] MEDS ORDERED: Clinimix 5%-20% SOLUTION 2,000 ML with Amino Acids 10% 0 ML, MVI, adult with vitamin ... IVC SCH (17:00)
[2022-02-25] MEDS: Insulin LISPRO 300 UNITS/3 ML VIAL SUBQ SCH ×6 (00:27→20:56)
[2022-02-25 04:07] LABS: Hematocrit 27.6 % (35.3-44.9); Hemoglobin 8.7 g/dL (11.5-15.4); Mean Corpuscular HGB Conc 31.5 g/dL (31.6-35.5); Mean Corpuscular Hemoglobin 28.8 pg (28.0-33.3); Mean Corpuscular Volume 91.4 fL (83.0-100.0); Mean Platelet Volume 10.5 fL (9.4-12.4); Platelet Count 223 K/mcL (140-400); Red Blood Count 3.02 M/mcL (3.82-4.97); Red Cell Distribution Width 17.9 % (11.5-14.5); White Blood Count 8.5 K/mcL (4.3-11.1)
[2022-02-25 05:26] LABS: Albumin 2.9 g/dL (3.5-5.7); Bilirubin,Total 0.4 mg/dL (0.3-1.0); Calcium 8.9 mg/dL (8.6-10.3); Globulin 2.8 g/dL (2.4-3.5); Phosphorous 3.7 mg/dL (2.7-4.5); Potassium 3.6 mEq/L (3.5-5.1); Total Protein 5.7 g/dL (6.4-8.9)
[2022-02-25] MEDS: *HR* Heparin 5,000 UNIT/ML VIAL SQ SCH ×3 (05:40→20:59)
[2022-02-25] MEDS: Budesonide/Formoterol 160/4.5 1 PUFF INH IH SCH ×2 (07:38→19:15)
[2022-02-25] MEDS: Sucralfate 1 GM TABLET PO SCH (07:55)
[2022-02-25] MEDS: amLODIPine 5 MG TABLET GTUBE SCH (07:55)
[2022-02-25] MEDS: FLUoxetine 20 MG CAPSULE PO SCH (07:56)
[2022-02-25] MEDS: Cyanocobalamin (B-12) 1,000 MCG TABLET PO SCH (07:56)
[2022-02-25] MEDS: Pantoprazole 40 MG VIAL IVP SCH (07:56)
[2022-02-25] MEDS: Cholecalciferol (D-3) 1,000 UNIT (25MCG) TABLET PO SCH (07:56)
[2022-02-25] MEDS: Dorzolamide OPTH 10 ML BOTTLE BOTH EYES SCH ×2 (07:57→21:00)
[2022-02-25] MEDS: Insulin DETEMIR 100 UNIT/ML X5UNITS SUBQ SCH ×2 (08:00→20:57)
[2022-02-25] MEDS: Thiamine (B-1) 100 MG in 0.9 % Sodium Chloride 50 ML IVPB SCH (08:06)
[2022-02-25] MEDS: Ampicillin/Sulbactam 3,000 MG in 0.9 % Sodium Chloride Mini Bag 100 ML IVPB SCH ×2 (09:15→20:57)
[2022-02-25] MEDS ORDERED: Clinimix E 5%-20% SOLUTION 2,000 ML with MVI, adult with vitamin K 10 ML IVC SCH (17:00)
[2022-02-25] MEDS: *HR* Metoprolol 5 MG/5 ML VIAL IVP SCH ×2 (17:26→23:21)
[2022-02-26] MEDS: Insulin LISPRO 300 UNITS/3 ML VIAL SUBQ SCH ×6 (00:34→21:46)
[2022-02-26 05:45] LABS: Albumin 2.9 g/dL (3.5-5.7); Bilirubin,Total 0.3 mg/dL (0.3-1.0); Globulin 2.9 g/dL (2.4-3.5); Magnesium 1.7 mg/dL (1.6-2.6); Phosphorous 3.7 mg/dL (2.7-4.5); Potassium 3.7 mEq/L (3.5-5.1); Total Protein 5.8 g/dL (6.4-8.9)
[2022-02-26] MEDS: *HR* Heparin 5,000 UNIT/ML VIAL SQ SCH ×3 (05:49→21:47)
[2022-02-26] MEDS: *HR* Metoprolol 5 MG/5 ML VIAL IVP SCH ×3 (05:50→18:11)
[2022-02-26] MEDS: Budesonide/Formoterol 160/4.5 1 PUFF INH IH SCH ×2 (07:38→21:44)
[2022-02-26] MEDS: Pantoprazole 40 MG VIAL IVP SCH (08:02)
[2022-02-26] MEDS: Insulin DETEMIR 100 UNIT/ML X5UNITS SUBQ SCH ×2 (08:05→21:47)
[2022-02-26] MEDS: Dorzolamide OPTH 10 ML BOTTLE BOTH EYES SCH ×2 (08:11→21:47)
[2022-02-26] MEDS: Ampicillin/Sulbactam 3,000 MG in 0.9 % Sodium Chloride Mini Bag 100 ML IVPB SCH (09:33)
[2022-02-26] MEDS ORDERED: Clinimix E 5%-20% SOLUTION 2,000 ML with MVI, adult with vitamin K 10 ML IVC SCH (17:00)
[2022-02-27] MEDS: *HR* Metoprolol 5 MG/5 ML VIAL IVP SCH ×4 (01:07→17:50)
[2022-02-27] MEDS: Insulin LISPRO 300 UNITS/3 ML VIAL SUBQ SCH ×7 (01:07→20:47)
[2022-02-27 04:53] LABS: Basophils % 0.3 %; Eosinophils % 0.1 %; Hemoglobin 8.6 g/dL (11.5-15.4); Immature Granulocytes % 1.4 % (0-4); Lymphocytes % 13.2 %; Mean Corpuscular HGB Conc 31.9 g/dL (31.6-35.5); Mean Corpuscular Volume 90.9 fL (83.0-100.0); Mean Platelet Volume 10.7 fL (9.4-12.4); Monocytes % 13.3 %; Neutrophils # 5.6 K/mcL (1.6-8.9); Platelet Count 216 K/mcL (140-400); Red Blood Count 2.97 M/mcL (3.82-4.97); Red Cell Distribution Width 17.5 % (11.5-14.5); Segmented Neutrophils % 71.7 %; White Blood Count 7.7 K/mcL (4.3-11.1)
[2022-02-27 05:11] LABS: Albumin 2.8 g/dL (3.5-5.7); Albumin/Globulin Ratio 0.9 (1.1-2.2); Bilirubin,Total 0.4 mg/dL (0.3-1.0); Calcium 8.9 mg/dL (8.6-10.3); Magnesium 1.8 mg/dL (1.6-2.6); Phosphorous 3.6 mg/dL (2.7-4.5); Potassium 3.9 mEq/L (3.5-5.1); Total Protein 5.8 g/dL (6.4-8.9)
[2022-02-27] MEDS: *HR* Heparin 5,000 UNIT/ML VIAL SQ SCH ×3 (06:41→21:18)
[2022-02-27] MEDS: Budesonide/Formoterol 160/4.5 1 PUFF INH IH SCH ×2 (07:25→20:15)
[2022-02-27] MEDS: Insulin DETEMIR 100 UNIT/ML X5UNITS SUBQ SCH ×2 (08:56→21:19)
[2022-02-27] MEDS: Pantoprazole 40 MG VIAL IVP SCH (08:57)
[2022-02-27] MEDS: Dorzolamide OPTH 10 ML BOTTLE BOTH EYES SCH ×2 (09:02→21:18)
[2022-02-27] MEDS: Ipratropium/Albuterol Neb 3 ML IH PRN (09:34)
[2022-02-27] MEDS ORDERED: E-Z-PAQUE (BARIUM SULF) SUSP 1 BOTTLE PO ONE (12:01)
[2022-02-27] MEDS ORDERED: E-Z-HD (BARIUM SULF) SUSPENSION PO ONE (12:01)
[2022-02-28] MEDS ORDERED: *HR* Metoprolol 5 MG/5 ML VIAL IVP SCH (03:30)
[2022-02-28 04:56] LABS: Hematocrit 25.2 % (35.3-44.9); Hemoglobin 8.1 g/dL (11.5-15.4); Mean Corpuscular HGB Conc 32.1 g/dL (31.6-35.5); Mean Corpuscular Volume 90.3 fL (83.0-100.0); Platelet Count 222 K/mcL (140-400); Red Blood Count 2.79 M/mcL (3.82-4.97); Red Cell Distribution Width 17.4 % (11.5-14.5); White Blood Count 6.8 K/mcL (4.3-11.1)
[2022-02-28 05:18] LABS: Calcium 8.8 mg/dL (8.6-10.3); Magnesium 1.6 mg/dL (1.6-2.6); Potassium 3.8 mEq/L (3.5-5.1)
[2022-02-28] MEDS: *HR* Heparin 5,000 UNIT/ML VIAL SQ SCH ×3 (05:32→22:56)
[2022-02-28] MEDS: Budesonide/Formoterol 160/4.5 1 PUFF INH IH SCH ×2 (07:35→19:56)
[2022-02-28] MEDS: Pantoprazole 40 MG VIAL IVP SCH (08:03)
[2022-02-28] MEDS: FLUoxetine 20 MG CAPSULE PO SCH (08:05)
[2022-02-28] MEDS: Cyanocobalamin (B-12) 1,000 MCG TABLET PO SCH (08:05)
[2022-02-28] MEDS: Cholecalciferol (D-3) 1,000 UNIT (25MCG) TABLET PO SCH (08:05)
[2022-02-28] MEDS: Dorzolamide OPTH 10 ML BOTTLE BOTH EYES SCH ×2 (08:05→19:52)
[2022-02-28] MEDS: Insulin LISPRO 300 UNITS/3 ML VIAL SUBQ SCH ×4 (08:11→19:52)
[2022-02-28] MEDS: Insulin DETEMIR 100 UNIT/ML X5UNITS SUBQ SCH (09:09)
[2022-03-01 05:19] LABS: Basophils % 0.3 %; Calcium 8.4 mg/dL (8.6-10.3); Eosinophils % 0.2 %; Hematocrit 24.8 % (35.3-44.9); Hemoglobin 7.8 g/dL (11.5-15.4); Immature Granulocytes % 1.2 % (0-4); Lymphocytes # 1.2 K/mcL (0.6-4.6); Lymphocytes % 19.6 %; Mean Corpuscular HGB Conc 31.5 g/dL (31.6-35.5); Mean Corpuscular Hemoglobin 28.7 pg (28.0-33.3); Mean Corpuscular Volume 91.2 fL (83.0-100.0); Mean Platelet Volume 10.7 fL (9.4-12.4); Monocytes # 0.8 K/mcL (0.0-1.3); Monocytes % 12.7 %; Platelet Count 214 K/mcL (140-400); Potassium 3.9 mEq/L (3.5-5.1); Red Blood Count 2.72 M/mcL (3.82-4.97); Red Cell Distribution Width 17.4 % (11.5-14.5); White Blood Count 6.1 K/mcL (4.3-11.1)
[2022-03-01] MEDS: *HR* Heparin 5,000 UNIT/ML VIAL SQ SCH ×3 (06:21→21:09)
[2022-03-01] MEDS: Pantoprazole 40 MG VIAL IVP SCH (09:25)
[2022-03-01] MEDS: Insulin DETEMIR 100 UNIT/ML X5UNITS SUBQ SCH ×2 (09:26→21:17)
[2022-03-01] MEDS: Dorzolamide OPTH 10 ML BOTTLE BOTH EYES SCH ×2 (09:26→21:09)
[2022-03-01] MEDS: FLUoxetine 20 MG CAPSULE PO SCH (09:26)
[2022-03-01] MEDS: Cyanocobalamin (B-12) 1,000 MCG TABLET PO SCH (09:26)
[2022-03-01] MEDS: Cholecalciferol (D-3) 1,000 UNIT (25MCG) TABLET PO SCH (09:27)
[2022-03-01] MEDS: Insulin LISPRO 300 UNITS/3 ML VIAL SUBQ SCH ×4 (09:28→21:09)
[2022-03-01] MEDS: Budesonide/Formoterol 160/4.5 1 PUFF INH IH SCH ×2 (10:08→20:42)
[2022-03-02 04:11] LABS: Basophils % 0.2 %; Eosinophils % 0.4 %; Hematocrit 24.7 % (35.3-44.9); Hemoglobin 7.9 g/dL (11.5-15.4); Immature Granulocytes % 1.1 % (0-4); Lymphocytes # 1.2 K/mcL (0.6-4.6); Lymphocytes % 21.6 %; Mean Corpuscular Hemoglobin 28.9 pg (28.0-33.3); Mean Corpuscular Volume 90.5 fL (83.0-100.0); Monocytes # 0.7 K/mcL (0.0-1.3); Monocytes % 13.3 %; Neutrophils # 3.5 K/mcL (1.6-8.9); Platelet Count 218 K/mcL (140-400); Red Blood Count 2.73 M/mcL (3.82-4.97); Red Cell Distribution Width 17.2 % (11.5-14.5); Segmented Neutrophils % 63.4 %; White Blood Count 5.6 K/mcL (4.3-11.1)
[2022-03-02 04:29] LABS: Calcium 8.1 mg/dL (8.6-10.3); Potassium 3.6 mEq/L (3.5-5.1)
[2022-03-02] MEDS: *HR* Heparin 5,000 UNIT/ML VIAL SQ SCH ×3 (06:16→20:36)
[2022-03-02] MEDS: *HR* Metoprolol 5 MG/5 ML VIAL IVP SCH (07:44)
[2022-03-02] MEDS: Budesonide/Formoterol 160/4.5 1 PUFF INH IH SCH ×2 (07:57→20:49)
[2022-03-02] MEDS: Insulin LISPRO 300 UNITS/3 ML VIAL SUBQ SCH ×4 (11:05→20:35)
[2022-03-02] MEDS: Cholecalciferol (D-3) 1,000 UNIT (25MCG) TABLET PO SCH (11:06)
[2022-03-02] MEDS: FLUoxetine 20 MG CAPSULE PO SCH (11:06)
[2022-03-02] MEDS: Cyanocobalamin (B-12) 1,000 MCG TABLET PO SCH (11:06)
[2022-03-02] MEDS: Insulin DETEMIR 100 UNIT/ML X5UNITS SUBQ SCH ×2 (11:06→20:35)
[2022-03-02] MEDS: Dorzolamide OPTH 10 ML BOTTLE BOTH EYES SCH ×2 (11:07→20:37)
[2022-03-02] MEDS: Pantoprazole 40 MG VIAL IVP SCH (11:07)
[2022-03-02] MEDS: amLODIPine 5 MG TABLET PO SCH (11:07)
[2022-03-02] MEDS ORDERED: 0.9 % Sodium Chloride 250 ML IVC PRN (11:23)
[2022-03-02] MEDS ORDERED: *HR* Heparin 10,000 UNIT/10 ML VIAL IV PRN (11:23)
[2022-03-03] MEDS: *HR* Heparin 5,000 UNIT/ML VIAL SQ SCH ×3 (05:13→21:19)
[2022-03-03 06:04] LABS: Calcium 8.3 mg/dL (8.6-10.3); Potassium 3.4 mEq/L (3.5-5.1)
[2022-03-03] MEDS: Insulin LISPRO 300 UNITS/3 ML VIAL SUBQ SCH ×4 (08:00→20:16)
[2022-03-03] MEDS ORDERED: Potassium Chloride Elixir 20 MEQ/15 ML UDC PO ONE (08:03)
[2022-03-03] MEDS: Cyanocobalamin (B-12) 1,000 MCG TABLET PO SCH (08:04)
[2022-03-03] MEDS: Cholecalciferol (D-3) 1,000 UNIT (25MCG) TABLET PO SCH (08:04)
[2022-03-03] MEDS: FLUoxetine 20 MG CAPSULE PO SCH (08:05)
[2022-03-03] MEDS: Insulin DETEMIR 100 UNIT/ML X5UNITS SUBQ SCH (08:05)
[2022-03-03] MEDS: amLODIPine 5 MG TABLET PO SCH (08:05)
[2022-03-03] MEDS: Dorzolamide OPTH 10 ML BOTTLE BOTH EYES SCH ×2 (08:06→20:17)
[2022-03-03] MEDS: Budesonide/Formoterol 160/4.5 1 PUFF INH IH SCH ×2 (09:37→20:00)
[2022-03-03] MEDS ORDERED: Furosemide 40 MG in 0.9 % Sodium Chloride 50 ML IV SCH (21:15)
[2022-03-03] MEDS: Furosemide 40 MG/4 ML VIAL IVP SCH (21:53)
[2022-03-04 06:24] LABS: Basophils % 0.3 %; Eosinophils % 0.8 %; Hematocrit 24.7 % (35.3-44.9); Hemoglobin 7.9 g/dL (11.5-15.4); Immature Granulocytes % 0.3 % (0-4); Lymphocytes # 1.2 K/mcL (0.6-4.6); Lymphocytes % 31.6 %; Mean Corpuscular Hemoglobin 29.2 pg (28.0-33.3); Mean Corpuscular Volume 91.1 fL (83.0-100.0); Mean Platelet Volume 10.2 fL (9.4-12.4); Monocytes # 0.5 K/mcL (0.0-1.3); Monocytes % 14.2 %; Platelet Count 215 K/mcL (140-400); Red Blood Count 2.71 M/mcL (3.82-4.97); Red Cell Distribution Width 16.9 % (11.5-14.5); Segmented Neutrophils % 52.8 %; White Blood Count 3.7 K/mcL (4.3-11.1)
[2022-03-04] MEDS: *HR* Heparin 5,000 UNIT/ML VIAL SQ SCH ×3 (06:30→22:54)
[2022-03-04 06:48] LABS: Calcium 8.2 mg/dL (8.6-10.3); Potassium 3.9 mEq/L (3.5-5.1)
[2022-03-04] MEDS: Budesonide/Formoterol 160/4.5 1 PUFF INH IH SCH ×2 (07:43→20:11)
[2022-03-04] MEDS ORDERED: *HR* Heparin 10,000 UNIT/10 ML VIAL IV PRN (09:06)
[2022-03-04] MEDS ORDERED: 0.9 % Sodium Chloride 250 ML IVC PRN (09:06)
[2022-03-04] MEDS: Insulin LISPRO 300 UNITS/3 ML VIAL SUBQ SCH ×4 (10:27→20:51)
[2022-03-04] MEDS: Insulin DETEMIR 100 UNIT/ML X5UNITS SUBQ SCH (10:28)
[2022-03-04] MEDS: Cyanocobalamin (B-12) 1,000 MCG TABLET PO SCH (10:29)
[2022-03-04] MEDS: amLODIPine 5 MG TABLET PO SCH (10:29)
[2022-03-04] MEDS: Cholecalciferol (D-3) 1,000 UNIT (25MCG) TABLET PO SCH (10:30)
[2022-03-04] MEDS: FLUoxetine 20 MG CAPSULE PO SCH (10:30)
[2022-03-04] MEDS: Dorzolamide OPTH 10 ML BOTTLE BOTH EYES SCH ×2 (10:30→20:52)
[2022-03-04] MEDS ORDERED: levoFLOXacin 750 MG TABLET PO SCH (14:45)
[2022-03-04] MEDS: Furosemide 40 MG/4 ML VIAL IVP SCH ×2 (15:50→15:51)
[2022-03-05 04:30] LABS: Eosinophils % 0.3 %; Hematocrit 24.7 % (35.3-44.9); Hemoglobin 7.9 g/dL (11.5-15.4); Immature Granulocytes % 0.6 % (0-4); Lymphocytes # 1.1 K/mcL (0.6-4.6); Mean Corpuscular Hemoglobin 28.7 pg (28.0-33.3); Mean Corpuscular Volume 89.8 fL (83.0-100.0); Monocytes # 0.5 K/mcL (0.0-1.3); Monocytes % 15.6 %; Neutrophils # 1.8 K/mcL (1.6-8.9); Platelet Count 201 K/mcL (140-400); Red Blood Count 2.75 M/mcL (3.82-4.97); Red Cell Distribution Width 16.5 % (11.5-14.5); Segmented Neutrophils % 51.5 %; White Blood Count 3.5 K/mcL (4.3-11.1)
[2022-03-05 04:49] LABS: Calcium 8.1 mg/dL (8.6-10.3); Potassium 3.8 mEq/L (3.5-5.1)
[2022-03-05] MEDS: *HR* Heparin 5,000 UNIT/ML VIAL SQ SCH (06:11)
[2022-03-05] MEDS ORDERED: 0.9 % Sodium Chloride 250 ML IVC PRN (08:26)
[2022-03-05] MEDS ORDERED: *HR* Heparin 10,000 UNIT/10 ML VIAL IV PRN (08:26)
[2022-03-05] MEDS: Budesonide/Formoterol 160/4.5 1 PUFF INH IH SCH (10:56)
[2022-03-05] MEDS: Cyanocobalamin (B-12) 1,000 MCG TABLET PO SCH (12:23)
[2022-03-05] MEDS: Cholecalciferol (D-3) 1,000 UNIT (25MCG) TABLET PO SCH (12:24)
[2022-03-05] MEDS: Furosemide 40 MG/4 ML VIAL IVP SCH (12:24)
[2022-03-05] MEDS: FLUoxetine 20 MG CAPSULE PO SCH (12:24)
[2022-03-05] MEDS: amLODIPine 5 MG TABLET PO SCH (12:24)
[2022-03-05] MEDS: Insulin DETEMIR 100 UNIT/ML X5UNITS SUBQ SCH (12:24)
[2022-03-05] MEDS: Insulin LISPRO 300 UNITS/3 ML VIAL SUBQ SCH ×2 (12:25→12:26)
[2022-03-05] MEDS: Dorzolamide OPTH 10 ML BOTTLE BOTH EYES SCH (12:26)
[2022-03-05 15:05] LABS: Adenovirus Not Detected (Not Detect); Bordetella Pertussis Not Detected (Not Detect); Chlamydophila pneumoniae Not Detected (Not Detect); Coronavirus 229E Not Detected (Not Detect); Coronavirus HKU1 Not Detected (Not Detect); Coronavirus NL63 Not Detected (Not Detect); Coronavirus OC43 Not Detected (Not Detect); Human Metapneumovirus Not Detected (Not Detect); Human Rhinovirus/Enterovirus Not Detected (Not Detect); Influenza A Subtype 2009 H1 Not Detected (Not Detect); Influenza B Not Detected (Not Detect); Mycoplasma pneumoniae Not Detected (Not Detect); Parainfluenza Virus 1 Not Detected (Not Detect); Parainfluenza Virus 2 Not Detected (Not Detect); Parainfluenza Virus 3 Not Detected (Not Detect); Parainfluenza Virus 4 Not Detected (Not Detect); Respiratory Syncytial Virus Not Detected (Not Detect); SARS-CoV-2 Not Detected (Not Detect)
[2022-03-05 15:26] VITALS: TEMP 98.8
[2022-03-05 16:34] VITALS: BP 128/67; PULSE 76; O2SAT 96
== END 2022-03-05 16:30 | DRG 870 ==
LOC: 2ANU 16:57 → EMEROOARM 16:57 → 2ANU 21:24 → SUATTDRO 02-12 10:24 → ICNU 02-15 13:44 → 2NNU 02-27 16:50
PROVIDERS: ADMIT Internal Medicine; ATTEND Internal Medicine